=== PATIENT | male | born 1960 ===

== ENCOUNTER → 2019-09-07 11:06 | Outpatient (REF) | payer MEDICARE, MEDICAID, SELFPAY | LOC: ANHLAB 11:06 | PROVIDERS: Visit Provider Nurse Practitioner | DX: C44.529 Squamous cell carcinoma of skin of other part of trunk (principal) | CPT/HCPCS: 88305; 88331; 88332 ==

== ENCOUNTER 2022-07-02 14:30 | Outpatient (NON) | payer MEDICARE, MEDICAID, SELFPAY | END 2022-07-02 14:31 | disposition home or self-care (01) | LOC: ANHLAB 14:31 | PROVIDERS: Referring Provider Nurse Practitioner; Visit Provider Nurse Practitioner | DX: C44.42 Squamous cell carcinoma of skin of scalp and neck (principal) | CPT/HCPCS: 88305; 88331 ==